=== PATIENT | female | born 1995 | race Caucasian/White ===

== ENCOUNTER 2016-12-18 12:55 | Emergency (ER) | payer BC ==
[2016-12-18 13:08] VITALS: BP 121/81
[2016-12-18] MEDS ORDERED: Ondansetron 4 MG/2 ML SDV IVPUSH ONE (13:48)
[2016-12-18] MEDS ORDERED: Ondansetron 4 MG Tab.DIS PO ONE (13:51)
[2016-12-18] MEDS ORDERED: Alum Hydrox/Mag Hydrox/Simeth 30 ML, Lidocaine 2% 15 ML PO ONE ×2 (14:39)
--- NOTE | 2016-12-18 14:41 | EDM.PDOC ---
ED HPI GENERAL MEDICAL PROBLEM - General Chief Complaint: Gastrointestinal Problem Stated Complaint: VOMITING Time Seen by Provider: 12/18/16 13:50 Source of Information: Reports: Patient History Limitations: Reports: No Limitations - History of Present Illness INITIAL COMMENTS - FREE TEXT/NARRATIVE: Patient is a 21-year-old female who presents to the ED complaining of nausea and vomiting. Patient was out partying last night consuming a variety of alcoholic beverages. She states she drank too much. She started vomiting approximately at midnight that has progressed throughout the course of the morning. States she had a faint episode of blood within her emesis. It turned from clear to a dark coffee-ground in color. She does have a history of acid reflux that started approximate 4 weeks ago. Denies utilizing ibuprofen excessively. Has no history of peptic ulcers or GI bleeds. She does not drink alcohol on a regular basis. Denies any blood in stool or melena. Throat Pain Score (Numeric/FACES): 3 - Related Data Allergies Allergy/AdvReac Type Severity Reaction Status Date / Time No Known Allergies Allergy Verified 12/18/16 13:08 Home Meds: Home Meds Ondansetron [Zofran ODT] 4 mg PO Q6H PRN #12 tab.dis 12/18/16 [Rx] Past Medical History - Past Health History Medical/Surgical History: Denies Medical/Surgical History Social & Family History - Tobacco Use Smoking Status *Q: Never Smoker - Alcohol Use Days Per Week of Alcohol Use: 2 Number of Drinks Per Day: 2 Total Drinks Per Week: 4 - Recreational Drug Use Recreational Drug Use: No ED ROS GENERAL - Review of Systems Review Of Systems: See Below Constitutional: Reports: Malaise, Decreased Appetite. Denies: Fever, Chills HEENT: Reports: No Symptoms Respiratory: Reports: No Symptoms Cardiovascular: Reports: No Symptoms GI/Abdominal: Reports: Abdominal Pain, Decreased Appetite, Nausea, Vomiting, Other (negative peptic ulcers). Denies: Anorexia, Black Stool, Bloody Stool, Constipation, Diarrhea, Difficulty Swallowing, Distension, Flatus, Hematemesis, Hematochezia, Melena : Reports: No Symptoms Musculoskeletal: Reports: No Symptoms Neurological: Reports: No Symptoms ED EXAM, GI/ABD - Physical Exam Exam: See Below Exam Limited By: No Limitations General Appearance: Alert, WD/WN, No Apparent Distress Ears: Hearing Grossly Normal Nose: Normal Inspection Throat/Mouth: Normal Inspection, Normal Oropharynx, Normal Voice, No Airway Compromise Neck: Normal Inspection, Supple. No: Lymphadenopathy (L), Lymphadenopathy (R) Respiratory/Chest: No Respiratory Distress, Lungs Clear, Normal Breath Sounds, No Accessory Muscle Use, Chest Non-Tender Cardiovascular: Normal Peripheral Pulses, Regular Rate, Rhythm, No Murmur GI/Abdominal Exam: Normal Bowel Sounds, Soft, Non-Tender, No Organomegaly, No Distention Back Exam: Normal Inspection. No: CVA Tenderness (L), CVA Tenderness (R) Neurological: Alert, Oriented, CN II-XII Intact, No Motor/Sensory Deficits Psychiatric: Normal Affect, Normal Mood Skin Exam: Warm, Dry, Intact, Normal Color Course - Vital Signs Last Recorded V/S: Last Vital Signs Temp 98.9 F 12/18/16 13:05 Pulse 105 H 12/18/16 13:05 Resp 16 12/18/16 13:05 BP 121/81 12/18/16 13:05 Pulse Ox 98 12/18/16 13:05 - Orders/Labs/Meds Labs: Laboratory Tests 12/18/16 12/18/16 Range/Units 14:15 14:15 WBC 16.03 H (3.98-10.04) K/mm3 RBC 5.15 (3.98-5.22) M/mm3 Hgb 14.7 (11.2-15.7) gm/L Hct 44.1 (34.1-44.9) % MCV 85.6 (79.4-94.8) fl MCH 28.5 (25.6-32.2) pg MCHC 33.3 (32.2-35.5) g/dl RDW Std Deviation 43.9 (36.4-46.3) fL Plt Count 460 H (182-369) K/mm3 MPV 9.5 (9.4-12.3) fl Neut % (Auto) 90.3 H (34.0-71.1) % Lymph % (Auto) 6.6 L (19.3-51.7) % Knott % (Auto) 2.6 L (4.7-12.5) % Eos % (Auto) 0 L (0.7-5.8) Baso % (Auto) 0.1 (0.1-1.2) % Neut # (Auto) 14.48 H (1.56-6.13) K/mm3 Lymph # (Auto) 1.05 L (1.18-3.74) K/mm3 Knott # (Auto) 0.42 H (0.24-0.36) K/mm3 Eos # (Auto) 0.00 L (0.04-0.36) K/mm3 Baso # (Auto) 0.02 (0.01-0.08) K/mm3 Manual Slide Review Normal smear Sodium 141 (136-145) mEq/L Potassium 3.7 (3.5-5.1) mEq/L Chloride 103 (98-107) mEq/L Carbon Dioxide 26 (21-32) mEq/L Anion Gap 15.7 H (5-15) BUN 19 H (7-18) mg/dL Creatinine 1.1 H (0.55-1.02) mg/dL Est Cr Clr Drug Dosing 57.62 mL/min Estimated GFR (MDRD) > 60 (>60) mL/min BUN/Creatinine Ratio 17.3 (14-18) Glucose 112 H (74-106) mg/dL Calcium 9.7 (8.5-10.1) mg/dL Total Bilirubin 0.3 (0.2-1.0) mg/dL AST 39 H (15-37) U/L ALT 35 (14-59) U/L Alkaline Phosphatase 64 (46-116) U/L Total Protein 8.8 H (6.4-8.2) g/dl Albumin 4.8 (3.4-5.0) g/dl Globulin 4.0 gm/dL Albumin/Globulin Ratio 1.2 (1-2) Meds: Medications Discontinued Medications Generic Name Dose Route Start Last Admin Trade Name Freq PRN Reason Stop Dose Admin Al Hydroxide/Mg Hydroxide 30 0 ml 12/18/16 14:39 12/18/16 15:04 ml/ Lidocaine HCl 15 ml PO 12/18/16 14:40 45 ml ONETIME ONE Administration Ondansetron HCl 4 mg 12/18/16 13:48 12/18/16 13:55 Zofran IVPUSH 12/18/16 13:49 Not Given ONETIME ONE Ondansetron HCl 4 mg 12/18/16 13:51 12/18/16 13:55 Zofran Odt PO 12/18/16 13:52 4 mg ONETIME ONE Administration - Re-Assessments/Exams Free Text/Narrative Re-Assessment/Exam: Patient has no complaints on examination. Ordered Zofran 4 mg ODT for nausea/ vomiting. In addition with history of coffee-ground emesis that is not improving at this time will order basic labs. GI cocktail ordered as well with history of acid reflux. 12/18/16 15:08 Labs reviewed: White blood cell count 16.03, platelets 460, neutrophil percent is 90.3, neutrophil #14.48, sodium 141, potassium 3.7, creatinine 1.1, I and gap is mildly elevated 15.7, glucose 112, AST is 39. White blood cell count elevated secondary to stress response with vomiting. Vital signs are stable. She is afebrile. She has no concerning findings on examination. 1507 patient's symptoms have progressively improved with the Zofran. She has been keeping all oral liquids down. She is ready to be discharged home. Will discharge patient home with instructions as documented. Departure - Departure Time of Disposition: 15:09 Disposition: Home, Self-Care 01 Condition: Good Clinical Impression: Vomiting, Alcohol abuse, episodic drinking behavior - Discharge Information Prescriptions: Ondansetron [Zofran ODT] 4 mg PO Q6H PRN #12 tab.dis PRN Reason: Nausea/Vomiting Instructions: Nausea and Vomiting, Adult, [id number] Referrals: PCP,None [Primary Care Provider] - Jeri Valdez PA [Physician Telemetry Technician] - Forms: ED Department Discharge Additional Instructions: Take the Zofran as prescribed for nausea and vomiting. Push the fluids including : Gatorade, Powerade, and Pedialyte. Stick with a bland diet until nausea/ vomiting subsides. Thereafter advance to normal diet. Suggest taking Prilosec one tab 20 minutes half-hour prior to breakfast every day for the next 2 weeks. Follow-up with PCP in the next 1-2 weeks for reevaluation. Refrain from driving today with history of alcohol intoxication. Return to the ED for any new or worsening symptoms.
== END 2016-12-18 15:31 | disposition home or self-care (01) ==
LOC: JD.ED 12:55
DX: R11.2 Nausea with vomiting, unspecified (principal); F10.10 Alcohol abuse, uncomplicated; K21.9 Gastro-esophageal reflux disease without esophagitis
CPT/HCPCS: 36415; 80053; 85025; 99284; A9270